=== PATIENT | female | born 1980 | race Hispanic/Latino ===

== ENCOUNTER 2025-01-25 19:50 | Emergency (ER) | payer BC ==
[~2025-01-25 19:50] MED LIST: Iopamidol 370 76% 100 ML VIAL ONE
[2025-01-25] MEDS ORDERED: Ondansetron PF 4 MG/2 ML Vial ONE (21:47)
[2025-01-25 22:21] LABS: #Basophils 0.03 10x3/uL (0.0-0.2); #Eosinophils 0.21 10x3/uL (0.0-0.7); #Monocytes 0.47 10x3/uL (0.11-0.59); #Neutrophils 2.72 10x3/uL (1.40-6.50); %Basophils 0.5 % (0.0-1.0); %Eosinophils 3.6 % (0.0-10.0); %Lymphocytes 40.4 % (21.0-51.0); %Monocytes 8.1 % (0.0-10.0); %Neutrophils 46.9 % (42.0-75.0); Hematocrit 36.8 % (36.0-47.0); Hemoglobin 11.9 g/dL (12.0-16.0); Mean Corpuscular Hemoglobin 27.8 pg (27.0-31.0); Mean Corpuscular Volume 86.0 fL (78.0-98.0); Platelet Count 208 10x3/uL (130-400); Red Blood Cell (RBC) Count 4.28 mill/uL (4.20-5.40); White Blood Cell (WBC) Count 5.81 10x3/uL (4.8-10.8)
[2025-01-25 22:29] LABS: BHCG - Serum Negative (NEGATIVE); Pregs Control Background? CLEAR/WHITE (CLR/WHITE); Pregs Control Bar Appear? YES (CONTROL BAR)
[2025-01-25 22:36] LABS: ALT (SGPT) 25 U/L (Less than 34); AST (SGOT) 28 U/L (11-34); Albumin 4.1 g/dL (3.1-4.5); Alkaline Phosphatase 48 U/L (40-110); Anion Gap 12 mmol/L (10-20); BUN (Urea Nitrogen) 12 mg/dL (7.0-18.7); Bilirubin, Total 0.5 mg/dL (0.3-1.2); Calc. Creatinine Clearance 0 mL/min (70-130); Calcium 8.3 mg/dL (7.8-10.44); Carbon Dioxide 23 mmol/L (22-29); Chloride 110 mmol/L (98-107); Globulin 3.4 g/dL (2.4-3.5); Glucose 94 mg/dL (70-105); Lipase 36 U/L (8-78); Magnesium 2.1 mg/dL (1.6-2.6); Potassium 3.7 mmol/L (3.5-5.1); Sodium 141 mmol/L (136-145)
[2025-01-25 22:40] LABS: Troponin I 0.011 ng/mL (< 0.028)
== END 2025-01-25 23:40 | disposition home or self-care (01) ==
LOC: ERS 19:50
DX: G89.29 Other chronic pain (principal); R10.12 Left upper quadrant pain
CPT/HCPCS: 74177; 80053; 83690; 83735; 84484; 84703; 85025; 96374; J2405; Q9967

== ENCOUNTER 2025-02-14 16:17 | Outpatient (CLI) | payer BC | END 2025-02-14 16:18 | disposition home or self-care (01) | LOC: SCSRAD 16:17 | PROVIDERS: ATTEND Family Medicine | DX: G58.8 Other specified mononeuropathies (principal) | CPT/HCPCS: 71046 ==